=== PATIENT | male | born 1995 | race Caucasian/White ===

== ENCOUNTER 2018-10-02 10:21 | Emergency (ER) | payer BC ==
[2018-10-02] MEDS ORDERED: SULF1TAB49 PO (12:56)
[2018-10-02] MEDS ORDERED: sulfamethoxazole/trimethoprim DS (800/160mg) tablet PO ONE (13:00)
[2018-10-02] MEDS ORDERED: MUPI22OI30 TOP (13:08)
== END 2018-10-02 13:21 | disposition home or self-care (01) ==
LOC: ER 11:46
DX: L02.413 Cutaneous abscess of right upper limb (principal); F10.99 Alcohol use, unspecified with unspecified alcohol-induced disorder; Z79.899 Other long term (current) drug therapy; Y90.9 Presence of alcohol in blood, level not specified
CPT/HCPCS: 99283